=== PATIENT | female | born 1955 | race African-American/Black ===

== ENCOUNTER 2016-04-04 11:29 | Emergency (ER) | payer OTHER ==
[~2016-04-04] VITALS: Ht 167.6 cm; Wt 79.0 kg
[~2016-04-04 11:29] MED LIST: BACTRIM,SEPT1 TABLET PO; GLUCOPHAGE1000 MG PO; METFORMIN HCL1000 MG PO; METFORMIN HCL500 MG PO; MYCOSTATIN15 GM PO; PERCOCET 5/31 TABLET PO; PROMETHAZINE HC25 M1 PO; ULTRAM ER100 MG PO; ULTRAM50 MG PO; VENTOLIN HFA18 GM IH; ZOFRAN ODT4 MG PO; ~No Medications
[2016-04-04 12:45] LABS: HEMATOCRIT 44.6 % (36.0-46.0); MCH 28.8 PG (29.0-34.0); MCHC 33.9 G/DL (30.0-36.0); MCV 85.1 FL (83-99); PLATELET COUNT 203 K/uL (156-360); RBC DIS.WIDTH-CV 13.2 % (11.8-14.6); RBC DIS.WIDTH-SD 40.9 % (39-53); RED BLOOD COUNT 5.24 M/uL (3.80-5.20)
[2016-04-04 12:57] LABS: CHLORIDE 109 mEq/L (99-109); POTASSIUM 3.9 mEq/L (3.7-5.4); SODIUM 142 mEq/L (136-147)
[2016-04-04 12:59] LABS: GLUCOSE 99 mg/dL (70-99)
[2016-04-04 13:00] LABS: ANION GAP 5 MEQ/L (2-14)
[2016-04-04 13:01] LABS: TOTAL BILIRUBIN 0.4 mg/dL (0.0-1.0)
[2016-04-04 13:02] LABS: ALKALINE PHOSPHATASE 90 IU/L (3-129)
[2016-04-04 13:03] LABS: GFR ESTIMATE (CALCULATED) > 59 mL/min/
[2016-04-04 13:04] LABS: UREA NITROGEN (BUN) 7 mg/dL (9-23)
[2016-04-04 13:07] LABS: ADD MIUA? YES; BILIRUBIN NEGATIVE; BLOOD SMALL; COLOR YELLOW ((YELLOW)); GLUCOSE (STRIP) NEGATIVE; KETONES NEGATIVE; LEUKOCYTES NEGATIVE; NITRITE NEGATIVE; PROTEIN (STRIP) >=500; SPECIFIC GRAVITY 1.017 (1.000-1.030)
[2016-04-04 13:18] LABS: BACTERIA NONE SEEN /HPF; EPITHELIAL CELLS 1+ /HPF; MUCUS TRACE /LPF; RED BLOOD CELLS 0-5 /HPF (0-5); UCUL ADDED? NO; WHITE BLOOD CELLS NONE SEEN /HPF (0-5)
[2016-04-04] MEDS ORDERED: CITRATE OF MAG296 ML PO (14:55)
[2016-04-04 16:00] VITALS: BP 131/85
== END 2016-04-04 16:11 | disposition home or self-care (01) ==
LOC: EME 11:29
DX: K59.00 Constipation, unspecified (principal); R10.30 Lower abdominal pain, unspecified; J45.909 Unspecified asthma, uncomplicated; E11.9 Type 2 diabetes mellitus without complications; K21.9 Gastro-esophageal reflux disease without esophagitis; F17.200 Nicotine dependence, unspecified, uncomplicated
CPT/HCPCS: 74176; 80053; 81003; 85027; 99281; 99284

== ENCOUNTER 2017-01-13 18:50 | Emergency (ER) | payer OTHER ==
[~2017-01-13] VITALS: Ht 170.2 cm; Wt 84.5 kg
[~2017-01-13 18:50] MED LIST changes: +CITRATE OF MAG296 ML PO
[2017-01-13 19:57] LABS: CHLORIDE 110 mEq/L (99-109); POTASSIUM 3.6 mEq/L (3.7-5.4); SODIUM 139 mEq/L (136-147)
[2017-01-13 19:59] LABS: GLUCOSE 133 mg/dL (70-99)
[2017-01-13 20:00] LABS: HEMATOCRIT 45.5 % (36.0-46.0); MCHC 33.2 G/DL (30.0-36.0); MCV 87.3 FL (83-99); MEAN PLAT.VOLUME 10.7 uM^3 (9.5-12.4); PLATELET COUNT 252 K/uL (156-360); RBC DIS.WIDTH-CV 13.3 % (11.8-14.6); RBC DIS.WIDTH-SD 42.3 % (39-53); RED BLOOD COUNT 5.21 M/uL (3.80-5.20); WHITE BLOOD COUNT 9.4 K/uL (4.1-10.2)
[2017-01-13 20:01] LABS: ANION GAP 5 MEQ/L (2-14); TOTAL BILIRUBIN 0.4 mg/dL (0.0-1.0)
[2017-01-13 20:03] LABS: ALKALINE PHOSPHATASE 154 IU/L (3-129); GFR ESTIMATE (CALCULATED) > 59 mL/min/
[2017-01-13 20:04] LABS: UREA NITROGEN (BUN) 9 mg/dL (9-23)
[2017-01-13 20:10] LABS: ADD MIUA? YES; BILIRUBIN NEGATIVE; BLOOD SMALL; COLOR YELLOW ((YELLOW)); GLUCOSE (STRIP) NEGATIVE; KETONES NEGATIVE; LEUKOCYTES NEGATIVE; NITRITE NEGATIVE; PROTEIN (STRIP) >=500; SPECIFIC GRAVITY 1.019 (1.000-1.030)
[2017-01-13 20:27] LABS: BACTERIA NONE SEEN /HPF; EPITHELIAL CELLS 1+ /HPF; HYALINE CASTS 0-5 /LPF; MUCUS NONE SEEN /LPF; UCUL ADDED? NO; WHITE BLOOD CELLS 0-5 /HPF (0-5)
[2017-01-13] MEDS ORDERED: ELIMITE 5% CREA60 GM TP (20:47)
[2017-01-13 20:56] VITALS: BP 169/80
== END 2017-01-13 20:58 | disposition home or self-care (01) ==
LOC: EME 18:50
PROVIDERS: Physician Assistant
DX: R60.0 Localized edema (principal); B86 Scabies; E11.40 Type 2 diabetes mellitus with diabetic neuropathy, unspecified; J45.909 Unspecified asthma, uncomplicated; K21.9 Gastro-esophageal reflux disease without esophagitis; Z79.4 Long term (current) use of insulin; F17.200 Nicotine dependence, unspecified, uncomplicated
CPT/HCPCS: 80053; 81003; 83880; 85027; 99281; 99284

== ENCOUNTER 2017-01-17 21:55 | Emergency (ER) | payer OTHER ==
[~2017-01-17] VITALS: Ht 170.2 cm; Wt 84.3 kg
[~2017-01-17 21:55] MED LIST changes: +ELIMITE 5% CREA60 GM TP
[2017-01-18 00:14] VITALS: BP 166/77
== END 2017-01-18 00:15 | disposition home or self-care (01) ==
LOC: EME 21:55
DX: R60.0 Localized edema (principal); E11.40 Type 2 diabetes mellitus with diabetic neuropathy, unspecified; K21.9 Gastro-esophageal reflux disease without esophagitis; Z79.4 Long term (current) use of insulin; F17.200 Nicotine dependence, unspecified, uncomplicated
CPT/HCPCS: 93971; 99281; 99283

== ENCOUNTER 2017-03-20 00:43 | Observation (INO) | payer OTHER ==
[~2017-03-20] VITALS: Ht 170.2 cm; Wt 81.9 kg
[2017-03-20 01:23] LABS: HEMOGLOBIN 15.3 G/DL (11.9-15.5); MCH 29.4 PG (29.0-34.0); MCHC 34.8 G/DL (30.0-36.0); MCV 84.5 FL (83-99); RBC DIS.WIDTH-CV 12.9 % (11.8-14.6); RBC DIS.WIDTH-SD 39.9 % (39-53); RED BLOOD COUNT 5.21 M/uL (3.80-5.20); WHITE BLOOD COUNT 10.6 K/uL (4.1-10.2)
[2017-03-20 01:41] LABS: ALBUMIN 2.7 g/dL (3.2-4.8); CHLORIDE 100 mEq/L (99-109); POTASSIUM 3.9 mEq/L (3.7-5.4); SODIUM 132 mEq/L (136-147)
[2017-03-20 01:43] LABS: TOTAL PROTEIN 6.8 g/dL (6.4-8.3)
[2017-03-20 01:45] LABS: TOTAL BILIRUBIN 0.3 mg/dL (0.0-1.0)
[2017-03-20 01:47] LABS: ALKALINE PHOSPHATASE 189 IU/L (3-129); CREATININE 0.8 mg/dL (0.6-1.3); GFR ESTIMATE (CALCULATED) > 59 mL/min/
[2017-03-20 01:48] LABS: UREA NITROGEN (BUN) 9 mg/dL (9-23)
[2017-03-20 01:49] LABS: AST (GOT) 44 IU/L (2-34)
[2017-03-20 01:50] LABS: ALT (GPT) 44 IU/L (3-49); GLUCOSE 399 mg/dL (70-99)
[2017-03-20 01:57] LABS: APPEARANCE CLEAR ((CLEAR)); BILIRUBIN NEGATIVE; BLOOD MODERATE; COLOR YELLOW ((YELLOW)); GLUCOSE (STRIP) >=500; KETONES NEGATIVE; LEUKOCYTES NEGATIVE; NITRITE NEGATIVE; PROTEIN (STRIP) >=500; SPECIFIC GRAVITY 1.027 (1.000-1.030); UROBILINOGEN 0.2 MG/DL (0.2-1.0)
[2017-03-20 02:01] LABS: BACTERIA NONE SEEN /HPF; EPITHELIAL CELLS RARE /HPF; MUCUS NONE SEEN /LPF; UCUL ADDED? NO; WHITE BLOOD CELLS 0-5 /HPF (0-5)
[2017-03-20 02:05] LABS: CARBON DIOXIDE (BICARBONATE) 29.8 MEQ/L (20-31)
[2017-03-20 02:09] LABS: LIPASE 37 U/L (1.0-51.0)
[2017-03-20 02:11] LABS: TROP-I INTERPRETATION NEGATIVE; TROPONIN-I < 0.01 ng/mL (0.0-0.30)
[2017-03-20 02:18] LABS: PLAT.SUFFICIENCY ADEQUATE; PLATELET COUNT 201 K/uL (156-360)
[2017-03-20 04:33] LABS: TROP-I INTERPRETATION NEGATIVE; TROPONIN-I < 0.01 ng/mL (0.0-0.30)
[2017-03-20 06:50] LABS: HDL CHOLESTEROL 23 MG/DL (Desirable>=50); LDL CHOLESTEROL 55 mg/dL (Desirable<100); NON-HDL CHOLESTEROL 118 mg/dL (Desirable<160); TOTAL CHOLESTEROL 141 mg/dL (Desirable<200); TRIGLYCERIDES 317 MG/DL (Normal: <150)
[2017-03-20 10:22] LABS: TROP-I INTERPRETATION NEGATIVE; TROPONIN-I 0.02 ng/mL (0.0-0.30)
[2017-03-20] MEDS ORDERED: LISINOPRIL40 MG PO (10:38)
[2017-03-20] MEDS ORDERED: HUMULIN N100 UNITS/ SC (10:38)
[2017-03-20] MEDS ORDERED: ERGOCALCIF50000 UNIT PO (10:39)
[2017-03-20] MEDS ORDERED: KETOCONAZOLE60 GM TP (10:40)
[2017-03-20] MEDS ORDERED: DIPROLENE 0.05%15 GM TP (10:40)
[2017-03-20] MEDS ORDERED: GABAPENTIN100 MG PO (10:41)
[2017-03-20] MEDS ORDERED: HYDROCHLOROTHIA25 MG PO (10:41)
[2017-03-20] MEDS ORDERED: ATORVASTATIN CA40 MG PO (10:41)
[2017-03-20] MEDS ORDERED: AMLODIPINE BESY10 MG PO (10:42)
[2017-03-20 12:27] VITALS: BP 145/66
[2017-03-21 15:32] LABS: HEMOGLOBIN A1c (GLYCOHEMOGLOB) 12.7 % (Below 5.7)
== END 2017-03-20 12:30 | disposition home or self-care (01) ==
LOC: EME 00:43 → EDOF 05:26 → ENRESERV 05:30 → EDOF 12:30 → ENRESERV 12:38 → CANRESERV 12:38
PROVIDERS: Emergency Medicine; Internal Medicine; Physician Assistant
DX: E11.65 Type 2 diabetes mellitus with hyperglycemia (principal); R07.9 Chest pain, unspecified; R94.31 Abnormal electrocardiogram [ECG] [EKG]; E11.40 Type 2 diabetes mellitus with diabetic neuropathy, unspecified; I10 Essential (primary) hypertension; E78.2 Mixed hyperlipidemia; Z79.4 Long term (current) use of insulin; Z79.52 Long term (current) use of systemic steroids; F17.210 Nicotine dependence, cigarettes, uncomplicated; Z79.82 Long term (current) use of aspirin; R05 Cough; R09.81 Nasal congestion; R35.0 Frequency of micturition; R53.1 Weakness
CPT/HCPCS: 71045; 80053; 80061; 81003; 82010; 82803; 82948; 83036; 83690; 83880; 84484; 85027; 87502; 93005; G0378; J1644; J1815; J7030

== ENCOUNTER 2017-07-21 16:09 | Emergency (ER) | payer OTHER ==
[~2017-07-21] VITALS: Ht 167.6 cm; Wt 83.2 kg
[~2017-07-21 16:09] MED LIST changes: +AMLODIPINE BESY10 MG PO; +ATORVASTATIN CA40 MG PO; +DIPROLENE 0.05%15 GM TP; +ERGOCALCIF50000 UNIT PO; +GABAPENTIN100 MG PO; +HUMULIN N100 UNITS/ SC; +HYDROCHLOROTHIA25 MG PO; +KETOCONAZOLE60 GM TP; +LISINOPRIL40 MG PO
[2017-07-21 17:04] LABS: BASOPHIL (%) 0.3 % (0-1); EOSINOPHIL (%) 2.5 % (0-5); EOSINOPHIL COUNT 0.3 K/uL (0-0.3); HEMATOCRIT 41.6 % (36.0-46.0); HEMOGLOBIN 14.5 G/DL (11.9-15.5); IMMATURE GRANULOCYTE (%) 0.2 % (0.0-0.7); LYMPHOCYTE COUNT 3.7 K/uL (1.0-2.8); MCHC 34.9 G/DL (30.0-36.0); MONOCYTE (%) 8.2 % (3-12); NEUTROPHIL (%) 56.8 % (45-76); NEUTROPHIL COUNT 6.6 K/uL (1.8-6.4); PLATELET COUNT 241 K/uL (156-360); RBC DIS.WIDTH-SD 40.8 % (39-53); RED BLOOD COUNT 4.84 M/uL (3.80-5.20); WHITE BLOOD COUNT 11.6 K/uL (4.1-10.2)
[2017-07-21 17:13] LABS: INTER. NORMALIZED RATIO 1.1
[2017-07-21 17:16] LABS: ALBUMIN 2.9 g/dL (3.2-4.8); CHLORIDE 103 mEq/L (99-109); POTASSIUM 3.6 mEq/L (3.7-5.4); PTT 35.6 SEC (25-37); SODIUM 139 mEq/L (136-147)
[2017-07-21 17:19] LABS: GLUCOSE 135 mg/dL (70-99); TOTAL PROTEIN 7.2 g/dL (6.4-8.3)
[2017-07-21 17:21] LABS: TOTAL BILIRUBIN 0.5 mg/dL (0.0-1.0)
[2017-07-21 17:22] LABS: ALKALINE PHOSPHATASE 129 IU/L (3-129); CREATININE 0.7 mg/dL (0.6-1.3); GFR ESTIMATE (CALCULATED) > 59 mL/min/
[2017-07-21 17:23] LABS: UREA NITROGEN (BUN) 11 mg/dL (9-23)
[2017-07-21 17:24] LABS: AST (GOT) 17 IU/L (2-34)
[2017-07-21 17:25] LABS: ALT (GPT) 13 IU/L (3-49)
[2017-07-21 17:26] LABS: LIPASE 91 U/L (1.0-51.0); TROP-I INTERPRETATION NEGATIVE; TROPONIN-I 0.01 ng/mL (0.0-0.30)
[2017-07-21 17:58] LABS: APPEARANCE CLEAR ((CLEAR)); BILIRUBIN NEGATIVE; BLOOD SMALL; COLOR YELLOW ((YELLOW)); GLUCOSE (STRIP) NEGATIVE; KETONES NEGATIVE; LEUKOCYTES NEGATIVE; NITRITE NEGATIVE; PROTEIN (STRIP) >=500; SPECIFIC GRAVITY 1.019 (1.000-1.030)
[2017-07-21 18:02] LABS: BACTERIA NONE SEEN /HPF; EPITHELIAL CELLS NONE SEEN /HPF; MUCUS TRACE /LPF; RED BLOOD CELLS 0-5 /HPF (0-5); UCUL ADDED? NO; WHITE BLOOD CELLS 0-5 /HPF (0-5)
[2017-07-21 19:08] LABS: AMPHETAMINE NEGATIVE (500 ng/mL); BARBITURATES NEGATIVE (200 ng/mL); BENZODIAZEPINES NEGATIVE (150 ng/mL); BUPRENORPHINE NEGATIVE (10 ng/mL); COCAINE NEGATIVE (150 ng/mL); METHADONE NEGATIVE (200 ng/mL); METHAMPHETAMINE NEGATIVE (500 ng/mL); OPIATES (MORPHINE) NEGATIVE (100 ng/mL); OXYCODONE NEGATIVE (100 ng/mL); PHENCYCLIDINE NEGATIVE (25 ng/mL); PROPOXYPHENE NEGATIVE (300 ng/mL); THC CANNABINOIDS NEGATIVE (50 ng/mL); TRICYCLIC ANTIDEPRESSANTS NEGATIVE (300 ng/mL)
[2017-07-21] MEDS ORDERED: GLUCOPHAGE850 MG PO (19:26)
[2017-07-21] MEDS ORDERED: MAVYRET 100-401 EACH PO (19:27)
[2017-07-21 21:09] VITALS: BP 140/84
== END 2017-07-21 21:11 | disposition home or self-care (01) ==
LOC: EME 16:09
PROVIDERS: Emergency Medicine
DX: R41.82 Altered mental status, unspecified (principal); I45.10 Unspecified right bundle-branch block; R94.31 Abnormal electrocardiogram [ECG] [EKG]; Z53.21 Procedure and treatment not carried out due to patient leaving prior to being seen by health care provider; E11.40 Type 2 diabetes mellitus with diabetic neuropathy, unspecified; Z79.4 Long term (current) use of insulin; K21.9 Gastro-esophageal reflux disease without esophagitis; J30.2 Other seasonal allergic rhinitis; B19.20 Unspecified viral hepatitis C without hepatic coma; F17.200 Nicotine dependence, unspecified, uncomplicated
CPT/HCPCS: 70450; 80053; 81003; 82140; 83605; 83690; 84484; 85025; 85610; 85730; 87040; 93005; 99281; 99285; J7030